=== PATIENT | male | born 1930 | race Caucasian/White ===

== ENCOUNTER 2016-12-29 14:56 | Inpatient (IN) | payer OTHER ==
--- NOTE | 2016-12-29 17:09 | CPEKG ---
Heart Rate: 77 RR Interval: 779 P-R Interval: 280 QRSD Interval: 152 QT Interval: 416 QTC Interval: 471 P [place]: 52 QRS [place]: 43 T Wave [place]: -5 EKG Severity - ABNORMAL ECG - EKG Impression: SINUS RHYTHM EKG Impression: FIRST DEGREE AV BLOCK EKG Impression: RIGHT BUNDLE BRANCH BLOCK EKG Impression: Possible left atrial abnormality Electronically Signed By: Adriel Huang 31-Dec-2016 10:43:34
--- NOTE | 2016-12-29 17:10 | EDPHY ---
HPI/HX/ROS/PE/MDM Narrative: CHIEF COMPLAINT: Altered mental status. HPI: The patient is an 86-year-old male with history of dementia who presents with increased confusion. According to the patient's sister, the patient was complaining of feeling very cold throughout the day. He was disoriented and thought he was living in [place]. Patient had visual hallucinations and thought there were buildings beneath his floor. He continued to say he was seeing red. Patient recalls a recent fall, but is unsure of the day he fell. He has no complaints of pain at this time. He denies fever. History is otherwise limited. REVIEW OF SYSTEMS: ROS limited due to patient's altered mental status. PMH: Denies. SOCIAL HISTORY: Lives at home alone. PHYSICAL EXAM: General: Patient is alert, in no acute distress. Head: Atraumatic. ENT: Eyes are normal to inspection. ENT inspection normal. Neck: Normal inspection. Full range of motion. Respiratory: No respiratory distress. Breath sounds normal bilaterally. Cardiovascular: Regular rate and rhythm. Strong peripheral pulses. Abdomen: The abdomen is nontender to palpation. There are no peritoneal signs. There are normal bowel sounds. Back: Normal to inspection. No tenderness to palpation. Skin: Normal color. No rash. Warm and dry. Extremities: Contusion to right elbow. Neuro: Normal motor function. Normal sensory function. ED Course: Patient presents with altered mental status. Plan to check lab work, urinalysis , and lactate. Chest x-ray ordered to rule out pneumonia or other infectious disease. CT head ordered to look for bleed. EKG was ordered and interpreted by myself, sinus, first degree AV block. RBBB. Please see [facility] system for official reading. CT head is negative for acute findings. 1750: According to nursing staff, the patient is refusing chest x-ray and will not provide urine sample. He agrees to IV fluids. Patient's sister states patient has never been to a doctor before. Patient has essentially normal labs. Lactate is normal. CHEM and CBC are normal. 1930: The patient will be admitted to Dr. Avila. MDM: This is an elderly patient with an essentially unknown past medical history secondary to limited encounters with medicine over the course of his life. His sister describes a concerning severe change in mental status. In the ER, the patient has no focal complaints. He is not febrile or tachycardic. Infectious etiology of AMS is possible, but patient refuses CXR or UA at this point, and I do not feel like empiric antibiotics are indicated prior to obtaining these tests. He is hemodynamically stable. The patient does not want to be admitted, but clearly lacks decisional capacity. His sister, who is MDPOA, has agreed to admission. - Data Points Imaging Results: Imaging Impressions Elbow X-Ray 12/29/16 15:06 Impression: Dorsal soft tissue swelling with a possible small joint effusion with no visible fracture. Head CT 12/29/16 17:16 Impression: 1. Elderly brain with diffuse atrophy and probable white matter small vessel disease. 2. Nothing acute is identified. Results called and discussed with Kal Abdullahi MD on 12/29/2016 at 17:49 Imaging: Discussed imaging studies w/ call worker person Radiologist, I viewed and interpreted images myself Laboratory Results: Laboratory Results 12/29/16 17:15 12/29/16 17:15 12/29/16 12/29/16 12/29/16 17:15 17:15 17:15 WBC 7.26 10^3/uL 10^3/uL (3.80-9.50) RBC 4.52 10^6/uL 10^6/uL (4.40-6.38) Hgb 14.6 g/dL g/dL (13.7-17.5) Hct 42.2 % % (40.0-51.0) MCV 93.4 fL fL (81.5-99.8) MCH 32.3 pg pg (27.9-34.1) MCHC 34.6 g/dL g/dL (32.4-36.7) RDW 13.1 % % (11.5-15.2) Plt Count 232 10^3/uL 10^3/uL (150-400) MPV 9.8 fL fL (8.7-11.7) Neut % (Auto) 71.5 % % (39.3-74.2) Lymph % (Auto) 17.6 % % (15.0-45.0) [place] % (Auto) 9.1 % % (4.5-13.0) Eos % (Auto) 0.8 % % (0.6-7.6) Baso % (Auto) 0.7 % % (0.3-1.7) Nucleat RBC Rel Count 0.0 % % (0.0-0.2) Absolute Neuts (auto) 5.19 10^3/uL 10^3/uL (1.70-6.50) Absolute Lymphs (auto) 1.28 10^3/uL 10^3/uL (1.00-3.00) Absolute Monos (auto) 0.66 10^3/uL 10^3/uL (0.30-0.80) Absolute Eos (auto) 0.06 10^3/uL 10^3/uL (0.03-0.40) Absolute Basos (auto) 0.05 10^3/uL 10^3/uL (0.02-0.10) Absolute Nucleated RBC 0.00 10^3/uL 10^3/uL (0-0.01) Immature Gran % 0.3 % % (0.0-1.1) Immature Gran # 0.02 10^3/uL 10^3/uL (0.00-0.10) VBG Lactic Acid Sodium 141 mEq/L mEq/L (134-144) Potassium 4.0 mEq/L mEq/L (3.5-5.2) Chloride 106 mEq/L mEq/L (97-110) Carbon Dioxide 22 mEq/l mEq/l (22-31) Anion Gap 13 mEq/L mEq/L (8-16) BUN 29 mg/dL H mg/dL (7-23) Creatinine 1.0 mg/dL mg/dL (0.7-1.3) Estimated GFR > 60 Glucose 109 mg/dL H mg/dL (70-100) Calcium 10.2 mg/dL mg/dL (8.5-10.4) Total Bilirubin 1.0 mg/dL mg/dL (0.1-1.4) Conjugated Bilirubin 0.3 mg/dL mg/dL (0.0-0.5) Unconjugated Bilirubin 0.7 mg/dL mg/dL (0.0-1.1) AST 41 IU/L IU/L (17-59) ALT 43 IU/L IU/L (21-72) Alkaline Phosphatase 94 IU/L IU/L (38-126) Troponin I < 0.012 ng/mL ng/mL (0-0.034) Total Protein 7.7 g/dL g/dL (6.3-8.2) Albumin 4.6 g/dL g/dL (3.5-5.0) 12/29/16 17:15 WBC RBC Hgb Hct MCV MCH MCHC RDW Plt Count MPV Neut % (Auto) Lymph % (Auto) [place] % (Auto) Eos % (Auto) Baso % (Auto) Nucleat RBC Rel Count Absolute Neuts (auto) Absolute Lymphs (auto) Absolute Monos (auto) Absolute Eos (auto) Absolute Basos (auto) Absolute Nucleated RBC Immature Gran % Immature Gran # VBG Lactic Acid 1.3 mmol/L mmol/L (0.7-2.1) Sodium Potassium Chloride Carbon Dioxide Anion Gap BUN Creatinine Estimated GFR Glucose Calcium Total Bilirubin Conjugated Bilirubin Unconjugated Bilirubin AST ALT Alkaline Phosphatase Troponin I Total Protein Albumin Medications Given: Discontinued Medications Sodium Chloride (Ns) 1,000 mls @ 0 mls/hr IV EDNOW ONE; Wide Open PRN Reason: Protocol Stop: 12/29/16 17:18 Last Admin: 12/29/16 17:54 Dose: 1,000 mls General Time Seen by Provider: 12/29/16 17:09 Initial Vital Signs: Initial Vital Signs Temperature (C) 36.4 C 12/29/16 14:57 Heart Rate 65 12/29/16 14:57 Respiratory Rate 18 12/29/16 14:57 Blood Pressure 123/77 H 12/29/16 14:57 O2 Sat (%) 93 12/29/16 14:57 O2 Delivery Mode Room Air Allergies/Adverse Reactions: No Known Allergies Allergy (Unverified 12/29/16 15:06) Home Medications: Medication Instructions Recorded NK [No Known Home Meds] 12/29/16 Departure - Departure Disposition: [facility] Inpatient Acute Clinical Impression: Altered mental status Qualifiers: Altered mental status type: unspecified Qualified Code(s): R41.82 - Altered mental status, unspecified Condition: Fair Report Scribed for: Kal Abdullahi Report Scribed by: Nan Verdugo Date of Report: 12/29/16 Time of Report: 17:21 Physician Review and Approval Statement: Portions of this note were transcribed by a medical insurance verifier. I personally performed the history, physical exam, and medical decision-making; and confirmed the accuracy of the information in the transcribed note.
[2016-12-29] MEDS ORDERED: NS 1,000 ML IV ONE (17:17)
[2016-12-29 17:22] LABS: % IMMATURE GRANULYOCYTES 0.3 % (0.0-1.1); ABSOLUTE IMMATURE GRANULOCYTES 0.02 10^3/uL (0.00-0.10); ADD DIFF? NO; ADD MORPH? NO; ADD SCAN? NO; ATYPICAL LYMPHOCYTE FLAG 0 (0-99); FRAGMENT RBC FLAG 0 (0-99); HEMATOCRIT 42.2 % (40.0-51.0); HEMOGLOBIN 14.6 g/dL (13.7-17.5); LEFT SHIFT FLG 0 (0-99); LIPEMIA HEMOLYSIS FLAG 90 (0-99); MEAN CELL HEMOGLOBIN 32.3 pg (27.9-34.1); MEAN CELL HEMOGLOBIN CONCENTR. 34.6 g/dL (32.4-36.7); MEAN CELL VOLUME 93.4 fL (81.5-99.8); MEAN PLATELET VOLUME 9.8 fL (8.7-11.7); PLATELET CLUMPS FLAG 0 (0-99); PLATELET COUNT 232 10^3/uL (150-400); RED BLOOD CELL COUNT 4.52 10^6/uL (4.40-6.38); RED CELL DISTRIBUTION WIDTH 13.1 % (11.5-15.2)
[2016-12-29 18:07] LABS: ANION GAP 13 mEq/L (8-16); CALCIUM 10.2 mg/dL (8.5-10.4); CARBON DIOXIDE 22 mEq/l (22-31); CHLORIDE 106 mEq/L (97-110); GLOMERULAR FILTRATION RATE > 60; GLUCOSE 109 mg/dL (70-100); SODIUM 141 mEq/L (134-144)
[2016-12-29 18:56] LABS: ALANINE AMINOTRANSFERASE 43 IU/L (21-72); ALBUMIN 4.6 g/dL (3.5-5.0); ALKALINE PHOSPHATASE 94 IU/L (38-126); ASPARTATE AMINOTRANSFERASE 41 IU/L (17-59); BILIRUBIN-CONJUGATED 0.3 mg/dL (0.0-0.5); BILIRUBIN-UNCONJUGATED 0.7 mg/dL (0.0-1.1); TOTAL PROTEIN 7.7 g/dL (6.3-8.2)
[2016-12-29 19:08] LABS: TROPONIN I < 0.012 ng/mL (0-0.034)
[2016-12-29] MEDS ORDERED: ACETAMINOPHEN 325 MG TAB PO PRN (19:59)
[2016-12-29] MEDS ORDERED: NS 1,000 ML IV SCH (20:00)
[2016-12-29 20:10] LABS: COLOR YELLOW; LEUKOCYTE ESTERASE,URINE 1+ (NEGATIVE); NITRITE,URINE NEGATIVE (NEGATIVE)
[2016-12-29 20:14] LABS: BACTERIA TRACE /hpf (NONE SEEN); MUCUS TRACE /lpf (NONE-1+); RBC,URINE 15-25 /hpf (0-3)
--- NOTE | 2016-12-29 20:37 | PDGENHP ---
History and Physical - Chief Complaint acute encephalopathy - History of Present Illness PCP: None HPI: 86-year-old male presents with acute encephalopathy characterized as disorientation, confusion, visual hallucinations with associated chills and reportedly recent mechanical fall. Onset of symptoms was on the day of this presentation and duration has been persistent thereafter. History is obtained from the patient's sister who was the family member finding him confused on the morning of this presentation. Per her, the patient is not usually in this state and is able to care for self. She reports that he was complaining of feeling cold but otherwise did not reveal any physical complaints. He was visibly confused and actively hallucinating. Prior to the onset of the symptoms , she reports he had otherwise been in his usual state of health. Upon my evaluation of the patient, he does endorse feeling cold on the day of this presentation but denies any other physical or infectious symptoms. He is aware that he is in unfamiliar setting, most likely hospital. He is requesting to go home with the doctors release him. That said, he reports that he will not be "feisty" and he will not resist care. History Information - Allergies/Home Medication List Allergies/Adverse Reactions: No Known Allergies Allergy (Unverified 12/29/16 15:06) Home Medications: NK [No Known Home Meds] 12/29/16 [Last Taken Unknown] I have personally reviewed and updated: family history, medical history, social history, surgical history - Past Medical History no pertinent PMH, dementia ( per report from sister) - Surgical History Additional surgical history: Tonsillectomy - Family History Additional family history: patient denies any malignancies in parents or siblings - Social History Smoking Status: Never smoked Alcohol Use: None Drug Use: None Additional social history: patient reports he moved to the [facility] several years ago, he previously worked in insurance, reports he was physically active in his life time and that is his secret to good health Review of Systems ROS: 10pt was reviewed & negative except for what was stated in HPI & below Constitutional: Reports: chills Neurological: Reports: other ( confusion, disorientation, hallucinations) Physical Exam Temp Pulse Resp BP Pulse Ox 36.3 C 98 18 174/95 H 93 12/29/16 18:00 12/29/16 20:15 12/29/16 20:15 12/29/16 20:15 12/29/16 20:15 Constitutional: no apparent distress, appears nourished, not in pain Eyes: PERRL, anicteric sclera, EOMI Ears, Nose, Mouth, Throat: moist mucous membranes, hearing normal, ears appear normal, no oral mucosal ulcers Cardiovascular: systolic murmur ( 3/6 systolic murmur at the right sternal border, 2/6 systolic murmur at the left sternal border, 2/6 systolic murmur at the apex), No irregularly irregular, No tachycardia, No edema Respiratory: no respiratory distress, no rales or rhonchi, clear to auscultation Gastrointestinal: normoactive bowel sounds, soft, non-tender abdomen, no palpable masses, No distension Genitourinary: no bladder fullness, no bladder tenderness Skin: other ( abrasion near right knee, no other rashes) Neurologic: sensation intact bilaterally, CN II-XII Intact, other ( alert awake oriented x2 to person and place not to time), No weakness ( motor strength 5/5 bilateral upper and lower extremities) Psychiatric: not anxious, encephalopathic, poor insight, poor memory, other ( concentration is 7/7, naming is 0/3), No agitated Lab Data & Imaging Review 12/29/16 17:15 12/29/16 17:15 WBC 7.26 10^3/uL (3.80-9.50) 12/29/16 17:15 RBC 4.52 10^6/uL (4.40-6.38) 12/29/16 17:15 Hgb 14.6 g/dL (13.7-17.5) 12/29/16 17:15 Hct 42.2 % (40.0-51.0) 12/29/16 17:15 MCV 93.4 fL (81.5-99.8) 12/29/16 17:15 MCH 32.3 pg (27.9-34.1) 12/29/16 17:15 MCHC 34.6 g/dL (32.4-36.7) 12/29/16 17:15 RDW 13.1 % (11.5-15.2) 12/29/16 17:15 Plt Count 232 10^3/uL (150-400) 12/29/16 17:15 MPV 9.8 fL (8.7-11.7) 12/29/16 17:15 Neut % (Auto) 71.5 % (39.3-74.2) 12/29/16 17:15 Lymph % (Auto) 17.6 % (15.0-45.0) 12/29/16 17:15 [place] % (Auto) 9.1 % (4.5-13.0) 12/29/16 17:15 Eos % (Auto) 0.8 % (0.6-7.6) 12/29/16 17:15 Baso % (Auto) 0.7 % (0.3-1.7) 12/29/16 17:15 Nucleat RBC Rel Count 0.0 % (0.0-0.2) 12/29/16 17:15 Absolute Neuts (auto) 5.19 10^3/uL (1.70-6.50) 12/29/16 17:15 Absolute Lymphs (auto) 1.28 10^3/uL (1.00-3.00) 12/29/16 17:15 Absolute Monos (auto) 0.66 10^3/uL (0.30-0.80) 12/29/16 17:15 Absolute Eos (auto) 0.06 10^3/uL (0.03-0.40) 12/29/16 17:15 Absolute Basos (auto) 0.05 10^3/uL (0.02-0.10) 12/29/16 17:15 Absolute Nucleated RBC 0.00 10^3/uL (0-0.01) 12/29/16 17:15 Immature Gran % 0.3 % (0.0-1.1) 12/29/16 17:15 Immature Gran # 0.02 10^3/uL (0.00-0.10) 12/29/16 17:15 VBG Lactic Acid 1.3 mmol/L (0.7-2.1) 12/29/16 17:15 Sodium 141 mEq/L (134-144) 12/29/16 17:15 Potassium 4.0 mEq/L (3.5-5.2) 12/29/16 17:15 Chloride 106 mEq/L (97-110) 12/29/16 17:15 Carbon Dioxide 22 mEq/l (22-31) 12/29/16 17:15 Anion Gap 13 mEq/L (8-16) 12/29/16 17:15 BUN 29 mg/dL (7-23) H 12/29/16 17:15 Creatinine 1.0 mg/dL (0.7-1.3) 12/29/16 17:15 Estimated GFR > 60 12/29/16 17:15 Glucose 109 mg/dL (70-100) H 12/29/16 17:15 Calcium 10.2 mg/dL (8.5-10.4) 12/29/16 17:15 Total Bilirubin 1.0 mg/dL (0.1-1.4) 12/29/16 17:15 Conjugated Bilirubin 0.3 mg/dL (0.0-0.5) 12/29/16 17:15 Unconjugated Bilirubin 0.7 mg/dL (0.0-1.1) 12/29/16 17:15 AST 41 IU/L (17-59) 12/29/16 17:15 ALT 43 IU/L (21-72) 12/29/16 17:15 Alkaline Phosphatase 94 IU/L (38-126) 12/29/16 17:15 Troponin I < 0.012 ng/mL (0-0.034) 12/29/16 17:15 Total Protein 7.7 g/dL (6.3-8.2) 12/29/16 17:15 Albumin 4.6 g/dL (3.5-5.0) 12/29/16 17:15 Urine Color YELLOW 12/29/16 20:00 Urine Appearance HAZY 12/29/16 20:00 Urine pH 5.0 (5.0-7.5) 12/29/16 20:00 Ur Specific [place] 1.016 (1.002-1.030) 12/29/16 20:00 Urine Protein NEGATIVE (NEGATIVE) 12/29/16 20:00 Urine Ketones NEGATIVE (NEGATIVE) 12/29/16 20:00 Urine Blood 1+ (NEGATIVE) H 12/29/16 20:00 Urine Nitrate NEGATIVE (NEGATIVE) 12/29/16 20:00 Urine Bilirubin NEGATIVE (NEGATIVE) 12/29/16 20:00 Urine Urobilinogen NEGATIVE EU (0.2-1.0) 12/29/16 20:00 Ur Leukocyte Esterase 1+ (NEGATIVE) H 12/29/16 20:00 Urine RBC 15-25 /hpf (0-3) H 12/29/16 20:00 Urine WBC 5-10 /hpf (0-3) H 12/29/16 20:00 Ur Epithelial Cells TRACE /lpf (NONE-1+) 12/29/16 20:00 Calcium Oxalate Crystal PRESENT /hpf (NONE-1+) 12/29/16 20:00 Urine Bacteria TRACE /hpf (NONE SEEN) H 12/29/16 20:00 Urine Mucus TRACE /lpf (NONE-1+) 12/29/16 20:00 Ur Culture Indicated? INDICATED (NI) H 12/29/16 20:00 Urine Glucose NEGATIVE (NEGATIVE) 12/29/16 20:00 Visualized and Interpreted EKG results: Yes EKG Interpretation: Positive for: other ( right bundle branch block, first- degree AV block) Assessment & Plan Assessment: 86-year-old male presenting with acute on chronic encephalopathy Plan: 1. Encephalopathy. Acute on chronic, new problem this provider, further workup indicated. evidenced by global brain dysfunction characterized by confusion, disorientation, hallucinations, all of which were reportedly acute change per his sister, able to care for self at baseline now completely unable to do so - unclear precipitant, potentially metabolic in the setting of dehydration with elevated BUN, possibly toxic in the setting of possible urinary tract infection - send TSH, send respiratory viral panel to rule out other possible causes - noncontrast head CT demonstrating atrophy but no areas of CVA - assembly of an MRI is indicated at this time as the patient does not have any other localizing features of his neurologic exam which would suggest CVA - give normal saline repeat BUN and creatinine tomorrow, gauge effect - treat possible urinary tract infection - get cog eval, PT, OT, case management - if patient remains unable to care for self in a.m., get ethics consult to help formally establish patient's sister as his MD POA and begin pursuing longer -term care options 2. Possible urinary tract infection. Weakly positive urinalysis, patient does not divulge any symptoms but chills and mental status changes could be more subtle symptoms an elderly and cognitively impaired patient - urine culture sent - give 1 dose of IV ceftriaxone with IV fluids and gauge effect Diet. Regular Prophylaxis. High risk patient, Lovenox 40 Code. Full at present, sister is MPOA Disposition. Anticipated discharge is uncertain this time, anticipated length stay is greater than 48 hours warranting inpatient admission status for acute on chronic encephalopathy rendering the patient unable to care for self and requiring a potentially higher level of care as well as treatment for possible urinary tract infection which would be complicated by definition in a male. Discussed with Dr. Kal Abdullahi, we both agree the patient warrants inpatient admission for all the aforementioned reasons.
[2016-12-30] MEDS ORDERED: HALOPERIDOL LACT 5 MG/ML INJ IVP ONE (06:00)
[2016-12-30] MEDS: ENOXAPARIN 40 MG/0.4 ML SYR SC SCH (08:57)
--- NOTE | 2016-12-30 10:25 | GCON ---
[f rep st] CONSULTATION NEUROLOGY CONSULT. DATE OF CONSULTATION: 12/30/2016 BILLING INFORMATION: Seventy total minutes floor time reviewing electronic health record, labs, head CT images, speaking to Nursing, nursing education consultant, and communicating with hospitalist team. CHIEF COMPLAINT: Encephalopathy. HISTORY OF PRESENT ILLNESS: The patient is a very pleasant 86-year-old gentleman who was admitted for acute changes in mental status, including confusion, hallucinations, and feeling chills. He also had a fall in this setting. He feels like he had some bruising around his elbow from this. This is a definite change from his baseline. He was seeing things, such as "elves," come from the wall. This is not usual for this patient. The patient came in with this confusion and chills and was found to be dehydrated and likely having a urinary tract infection. He received fluids and antibiotics overnight and has improved. He had a head CT in the emergency department, showed no acute changes, such as early stroke findings or hemorrhage. PAST MEDICAL HISTORY: Dementia, per report from sister. FAMILY HISTORY: No relevant family history. ALLERGIES: No known drug allergies. REVIEW OF SYSTEMS: Ten-point review of systems was attempted with the patient, but limited by his cognitive status. PHYSICAL EXAMINATION: VITAL SIGNS: Temperature 36.9, blood pressure 144/82. Respiratory rate is 16. GENERAL: The patient was awake and alert. He thought the year was 2006 and could not remember the president's name. He had trouble remembering the name or word for "elbow." With prompting, he was accurate. NEUROLOGIC: Cranial nerve exam: No extraocular movement defects. Face is symmetric. Facial sensations intact. On motor exam, there is no focal weakness. No pronator drift. Tone is normal. Sensory exam unreliable. Coordination: Normal [id number] bilaterally in terms of accuracy. IMPRESSION/PLAN: 1. Question underlying diagnosis of dementia. 2. Dehydration and probable urinary tract infection. 3. Delirium. The patient's clinical history, laboratory studies and presentation suggest underlying dementia with acute delirium from metabolic causes (probable urinary tract infection). He has improved overnight with IV rehydration and antibiotics. At this point, I would continue this course of care and treat agitation p.r.n. I do not think we need to pursue further neurologic testing now as he is improving with fluids and antibiotics. Thank you for this consultation. We will continue to follow this very pleasant gentleman as needed. Please do not hesitate to call for any changes in neurologic status or questions. /[id number]/MODL MTDD
--- NOTE | 2016-12-30 13:44 | HOSPPROG ---
Hospitalist Progress Note Assessment/Plan: 86-year-old male presenting with acute on chronic encephalopathy. This is my first encounter, chart reviewed. D/W CM and Dr Sal. Plan: # Encephalopathy. Acute on chronic unclear etiology, potentially metabolic in the setting of dehydration with elevated BUN possibly toxic in the setting of possible urinary tract infection send TSH, respiratory viral panel negative noncontrast head CT demonstrating atrophy but no areas of CVA normal saline given CTX for possible urinary tract infection, follow culture cog eval, PT, OT, case management get ethics consult to help formally establish patient's sister as his MD POA and begin pursuing longer-term care options appreciate Dr Sal consult # Agitation responding well to haldol will cont PRN # Possible urinary tract infection. unable to reveal symptoms but chills and mental status change urine culture pending give IV ceftriaxone with IV fluids, follow cx #Mechanical fall PT/oT #Right elbow erythema, etiol unclear possible gout? vs infection monitor Diet. Regular Prophylaxis. High risk patient, Lovenox 40 Code. Full at present, sister is MPOA Disposition. Anticipated discharge is uncertain this time, anticipated length stay is greater than 48 hours warranting inpatient admission status for acute on chronic encephalopathy rendering the patient unable to care for self and requiring a potentially higher level of care as well as treatment for possible urinary tract infection which would be complicated by definition in a male. Subjective: Up in bed. Denies pain. No specific complaints. Sitter at bedside. Objective: Vital Signs Temp Pulse Resp BP Pulse Ox 36.5 C 79 16 157/80 H 94 12/30/16 11:59 12/30/16 11:59 12/30/16 11:59 12/30/16 11:59 12/30/16 11:59 Microbiology 12/29/16 23:45 Respiratory Panel (PCR) - Final Nasal, Sinus - [place] Viral Transport No Organism Detected 12/29/16 12/30/16 12/31/16 05:59 05:59 05:59 Intake Total 1050 Output Total 300 152 Balance 750 -152 - Physical Exam Constitutional: appears nourished, not in pain, chronically ill appearing Eyes: PERRL, anicteric sclera, EOMI Ears, Nose, Mouth, Throat: moist mucous membranes, hearing normal, ears appear normal Cardiovascular: regular rate and rhythym, No JVD, No edema Respiratory: no respiratory distress, no rales or rhonchi, reduced air movement Gastrointestinal: normoactive bowel sounds, No tenderness, No ascites Skin: warm, erythema, other (echymosis) Musculoskeletal: normal joint ROM, no joint effusions, generalized weakness Neurologic: No AAOx3 Psychiatric: not anxious, poor insight, poor judgement, poor memory, No thought process linear ICD10 Worksheet Patient Problems: Problems Problem Status Onset Altered mental status Acute
[2016-12-31] MEDS: ENOXAPARIN 40 MG/0.4 ML SYR SC SCH (09:39)
--- NOTE | 2016-12-31 12:09 | HOSPPROG ---
Hospitalist Progress Note Assessment/Plan: 86-year-old male presenting with acute on chronic encephalopathy. D/W CM, ethics consult ordered and cog eval. Plan: # Encephalopathy. Acute on chronic unclear etiology, potentially metabolic in the setting of dehydration with elevated BUN UTI ruled out labs pending as pt refusing TSH, B12 respiratory viral panel negative noncontrast head CT demonstrating atrophy but no areas of CVA normal saline given cog eval, PT, OT, case management get ethics consult to help formally establish patient's sister as his MD POA and begin pursuing longer-term care options appreciate Dr Sal consult # Agitation responding well to haldol one time # Possible urinary tract infection. ruled out ctx given #Mechanical fall PT/oT #Right elbow erythema, related to fall improved today, now with echymosis monitor #HTN intermittent, no treatment Diet. Regular Prophylaxis. High risk patient, Lovenox 40 Code. Full at present, sister is MPOA Disposition. Anticipated discharge is uncertain this time, anticipated length stay is greater than 48 hours warranting inpatient admission status for acute on chronic encephalopathy rendering the patient unable to care for self and requiring a potentially higher level of care as well as treatment for possible urinary tract infection which would be complicated by definition in a male. Subjective: Up in chair. Confused. No pain currently. Objective: Vital Signs Temp Pulse Resp BP Pulse Ox 36.8 C 83 16 135/81 H 94 12/31/16 11:32 12/31/16 11:32 12/31/16 11:32 12/31/16 11:32 12/31/16 11:32 Microbiology 12/29/16 23:45 Respiratory Panel (PCR) - Final Nasal, Sinus - [place] Viral Transport No Organism Detected 12/30/16 12/31/16 01/01/17 05:59 05:59 05:59 Intake Total 1050 280 Output Total 300 152 Balance 750 128 - Physical Exam Constitutional: no apparent distress, not in pain Eyes: PERRL, anicteric sclera Ears, Nose, Mouth, Throat: moist mucous membranes, hearing normal Cardiovascular: No JVD, No edema Respiratory: no respiratory distress, reduced air movement Gastrointestinal: No tenderness, No ascites Skin: warm, erythema Musculoskeletal: no joint effusions, generalized weakness Neurologic: No AAOx3 Psychiatric: not anxious, poor insight, poor judgement, poor memory ICD10 Worksheet Patient Problems: Problems Problem Status Onset Altered mental status Acute
[2017-01-01 08:03] VITALS: BP 119/70; PULSE 88; RESP 16; TEMP 98.7; O2SAT 94
[2017-01-01] MEDS ORDERED: ASPIRIN EC 325 MG TAB PO PRN (08:34)
[2017-01-01] MEDS: ENOXAPARIN 40 MG/0.4 ML SYR SC SCH (08:45)
--- NOTE | 2017-01-01 10:50 | PDIAF ---
- Diagnosis Diagnosis: fall Code Status: Full Code - Medication Management Discharge Medications: Medications to Continue on Transfer Acetaminophen [Tylenol 325mg (*)] 650 mg PO Q4HRS PRN #0 tab 01/01/17 [Last Taken Unknown] Aspirin EC [Aspirin EC 325 mg (*)] 650 mg PO Q6 PRN #0 tab 01/01/17 [Last Taken Unknown] Discharge Medications: Refer to the Discharge Home Medication list for PRN reason. PICC Care - Routine: N/A - Orders Services needed: Registered Nurse, Physical Therapy, Occupational Therapy Diet Recommendation: no restrictions on diet - Follow Up Care Current Providers and Referrals: NONE *PRIMARY CARE P,. [Primary Care Provider] - As per Instructions
--- NOTE | 2017-01-01 20:43 | GDS ---
[f rep st] DISCHARGE SUMMARY DISCHARGE DIAGNOSES: 1. Fall. 2. Adult failure to thrive. 3. Altered mental status. 4. Encephalopathy. 5. Agitation. 6. Right elbow pain. 7. Intermittent hypertension. STUDIES AND PROCEDURES DONE: CT of the head. CONSULTATIONS: Neurology. PHYSICAL EXAM: GENERAL: The patient is alert. VITAL SIGNS: Afebrile at 37.1 , pulse is 88, respiratory rate 16, blood pressure is 119/70, he is saturating 94% on room air. I have seen and evaluated the patient on the day of discharge. HOSPITAL COURSE: The patient is an 86-year-old male who presented to the emergency room after suffering a fall. He was evaluated and diagnosed with: 1. Encephalopathy. During this hospitalization, he did receive evaluation with laboratory evaluation and Neurology consult. The patient's encephalopathy appears to be chronic in nature, likely representing dementia. He has improved with IV hydration; however, his mentation is not within normal limits and he does not have decisional capacity. Appreciate Neurology consultation. Reviewed with the family, the patient is not safe to be discharged home and requires group home facility. 2. Agitation. This has resolved. 3. Mechanical fall. PT and OT will be continued. 4. Right elbow pain. This is secondary to the patient's mechanical fall. No further evaluation warranted at this time. 5. Intermittent hypertension, likely secondary to anxiety and agitation. DISPOSITION: The patient will be discharged to [facility] for further physical therapy and occupational therapy. I have reviewed his disposition with the family as well as the case mgr. The patient's sister is his MD PRYOR. Further recommendations for outpatient therapy will be made at [facility]. There are no pending studies. DISCHARGE MEDICATIONS: Tylenol and aspirin. I spent greater than 35 minutes in the care, coordination, and management of patient's disposition. /[id number]/MODL MTDD
== END 2017-01-01 12:35 | DRG 72 ==
LOC: F3E 20:45
PROVIDERS: ADMIT Internal Medicine; ATTEND Internal Medicine
DX: G93.40 Encephalopathy, unspecified (principal); R62.7 Adult failure to thrive; M25.521 Pain in right elbow; W19.XXXA Unspecified fall, initial encounter; I10 Essential (primary) hypertension; R45.1 Restlessness and agitation
CPT/HCPCS: 82607-90; 92507-GN; 92523-GN; 97162-GP; 97165-GO; 97530-GP; G8978-GP-CL; G8979-GP-CI; G8987-GO-CJ; G9168-GN-CL; G9169-GN-CI; J0696; J1650